=== PATIENT | female | born 1995 | race Caucasian/White ===

== ENCOUNTER → 2018-02-28 16:13 | Outpatient (CLI) | payer MEDICAID, SELFPAY ==
[2018-02-28 19:05] LABS: HIV - WCH Non-Reactive (Nonreactive)
[2018-02-28 19:44] LABS: Probe Check PASS; Sample Adequacy Control PASS; Specimen Processing Control PASS; Trichomonas Vag DNA by PCR Negative (Negative)
[2018-02-28 20:44] LABS: Chlamydia Trachomatis by PCR Negative (Negative); Neisserai gonorrhoeae by PCR Negative (Negative); Probe Check PASS; Sample Adequacy Control PASS; Specimen Processing Control PASS
[2018-03-08 11:03] LABS: HPV APTIMA, High Risk Negative (Negative); HPV Reflexed? NOT INDICATED
== END ==
PROVIDERS: Visit Provider Obstetrics & Gynecology
DX: Z01.419 Encounter for gynecological examination (general) (routine) without abnormal findings (principal); Z11.3 Encounter for screening for infections with a predominantly sexual mode of transmission
CPT/HCPCS: 36415; 86703; 87491; 87591; 87661; 88175; G0145

== ENCOUNTER → 2019-02-28 10:59 | Outpatient (CLI) | payer MEDICAID, SELFPAY ==
[2017-01-21 11:30] VITALS: BMI 27.8
[2019-02-28 15:31] LABS: Chlamydia Trachomatis by PCR Negative (Negative); Neisserai gonorrhoeae by PCR Negative (Negative); Probe Check PASS; Sample Adequacy Control PASS; Specimen Processing Control PASS
[2019-02-28 18:27] LABS: HIV - WCH Non-Reactive (Nonreactive)
[2019-03-01 09:06] LABS: HEPATITIS B SURFACE AG Negative (Negative); Hep C Antibodies <0.1 s/co ratio (0.0-0.9)
[2019-03-03 01:35] LABS: Rapid Plasmin Reagin (RPR) NONREACTIVE (NONREACTIVE)
[2019-03-04 08:50] LABS: HPV HC, High Risk Negative (Negative)
[2019-03-04 08:56] LABS: HPV Reflexed? YES, CHARGE PATIENT
== END ==
PROVIDERS: Visit Provider Obstetrics & Gynecology
DX: Z11.3 Encounter for screening for infections with a predominantly sexual mode of transmission (principal)
CPT/HCPCS: 36415; 86592; 86703; 86803; 87340; 87491; 87591; 87624; 88175; G0145

== ENCOUNTER → 2020-10-18 15:04 | Outpatient (CLI) | payer MEDICAID, SELFPAY ==
[2020-10-18 16:08] LABS: T3 Total - Triiodothyronine 0.79 ng/mL (0.6-1.81)
[2020-10-18 16:18] LABS: Free T3 2.4 pg/mL (2.18-3.98); T4 Free Direct 1.28 ng/dL (0.76-1.46)
[2020-10-21 21:02] LABS: Thyroid Peroxidase AB < 9 IU/mL (0-34)
== END ==
PROVIDERS: Visit Provider Obstetrics & Gynecology
DX: N92.6 Irregular menstruation, unspecified (principal)
CPT/HCPCS: 36415; 84439; 84443; 84480; 84481; 86376

== ENCOUNTER → 2020-11-21 13:59 | Outpatient (CLI) | payer MEDICAID, SELFPAY ==
[2020-11-21 16:32] LABS: Insulin 6.8 mU/L (2.6-37.6); Vitamin D,25 Hydroxy 43.4 ng/mL
[2020-11-21 16:38] LABS: Hemoglobin A1c 5.1 % (3.8-5.6)
[2020-11-21 16:42] LABS: Estradiol 46.5 pg/mL; Follicle Stimulating Hormone 5.7 mIU/mL; Glucose 74 mg/dL (74-106); Luteinizing Hormone 7.9 mIU/mL
[2020-11-23 09:10] LABS: Sex Hormone-binding Globulin 78.1 nmol/L (24.6-122.0)
[2020-11-30 10:47] LABS: 17-Hydroxyprogesterone 67 ng/dL (.)
== END ==
PROVIDERS: Visit Provider Obstetrics & Gynecology
DX: L68.0 Hirsutism (principal); N91.5 Oligomenorrhea, unspecified
CPT/HCPCS: 36415; 82306; 82627; 82670; 82947; 83001; 83002; 83036; 83498; 83525; 84270; 84403; 82626

== ENCOUNTER 2022-02-10 15:23 | Outpatient (CLI) | payer BC, MEDICAID, SELFPAY ==
[2022-02-10 16:05] LABS: Hemoglobin 12.3 g/dL (12.0-15.0); Mean Corp Hgb Conc 33.2 g/dL (32-36); Mean Corpuscular Hgb 31.4 pg (27.0-32.0); Mean Corpuscular Volume 94.4 fL (81-99); Mean Platelet Vol. 11.7 fl (6.2-12.0); Platelet Count 177 K/mm3 (150-450); RBC Distribution Width CV 13.2 % (11.6-14.6); RBC Distribution Width SD 45.8 fl (35.1-43.9); Red Blood Count 3.92 M/mm3 (4.2-5.4); White Blood Count 3.7 K/mm3 (4.4-11.0)
[2022-02-10 16:53] LABS: Estradiol 35.1 pg/mL; Follicle Stimulating Hormone 8.4 mIU/mL; Luteinizing Hormone 10.4 mIU/mL; T4 Free Direct 1.22 ng/dL (0.76-1.46); Thyroid Stim Hormone (TSH) 0.62 uIU/mL (0.358-3.74)
[2022-02-15 16:59] LABS: Testosterone Free 2.4 pg/mL (0.0-4.2)
== END 2022-02-10 23:59 | disposition home or self-care (01) ==
PROVIDERS: Visit Provider Obstetrics & Gynecology
DX: N95.1 Menopausal and female climacteric states (principal)
CPT/HCPCS: 36415; 82670; 83001; 83002; 84402; 84439; 84443; 85027

== ENCOUNTER 2022-11-30 18:41 | Emergency (ER) | payer BC, MEDICAID, SELFPAY ==
[2022-11-30 18:42] VITALS: BP 115/74; PULSE 80; RESP 18; TEMP 36.4; O2SAT 100; BMI 27.3
--- NOTE | 2022-11-30 19:07 | EDS_ITS ---
HPI HPI - URI History of Present Illness Chief Complaint: Cold Sx Informant: patient Onset/Context/Timing Onset: Days Context: Gradual Onset Timing: Continuous Quality: Dull Location: Throat Worsened by: - (Nothing) Relieved by: - (Nothing) Associated Symptoms Associated Symptoms: Positive for Nasal Congestion; Negative for Headache, Sinus Pressure, Myalgias, Nausea or Vomiting Narrative Narrative: Patient present with cough and sore throat that has been getting worse over the past several days. Patient states it is gradually getting worse. Patient states it has been constant. Patient describes her pain as a dull pain. Patient states nothing makes it better nothing makes it worse. Patient admits to some nasal congestion and rhinorrhea. Patient denies any sputum production. Patient admits to some subjective chills but denies any fevers. Patient denies any headaches. ROS [facility] ED Constitutional Constitutional ED: Reports chills and subjective; Denies fever(s) Eyes Eyes: Denies blurry vision or change in vision ENT ENT ED: Reports rhinorrhea and sore throat Cardiovascular Cardiovascular: Denies chest pain or palpitations Respiratory/Chest Respiratory/Chest: Denies cough or dyspnea Gastrointestinal Gastrointestinal: Denies nausea or vomiting Genitourinary Genitourinary ED: Denies dysuria or hematuria Musculoskeletal Musculoskeletal: Denies back pain or neck pain Integumentary Denies abscess or rash Neurologic Neurologic: Denies headache(s) or weakness Allergic/Immunologic Allergic/Immunologic ED: Denies mouth swelling or urticaria [facility] Medical History (Updated 11/30/22 @ 21:[address] Александр Ferrer, DO) Anxiety GERD (gastroesophageal reflux disease) PCOS (polycystic ovarian syndrome) Home Medications Natural Flower Rememdy 1 drp PO DAILY 01/18/17 [History Last Taken Unknown] Red Pepper 4 cap PO BID 01/18/17 [History Last Taken Unknown] ascorbic acid (vitamin C) 1,000 mg tablet (Vitamin C) 2,000 mg PO DAILY 01/18/17 [History Last Taken Unknown] cholecalciferol (vitamin D3) 50 mcg (2,000 unit) capsule (Vitamin D3) 4,000 unit PO DAILY 01/18/17 [History Last Taken Unknown] lactobacillus comb no.10 20 billion cell capsule (Probiotic) 1 ea PO DAILY 01/18/17 [History Last Taken Unknown] multivitamin with folic acid 400 mcg tablet (Thera) 1 tab PO DAILY 01/18/17 [History Last Taken Unknown] multivitamin,min-ferrous fumarate 3.3 mg-folic 25 mcg-herb tablet (Hair, Skin and Nails Advanced) 1 ea PO DAILY 01/18/17 [History Last Taken Unknown] zinc 50 mg tablet 50 mg PO DAILY 01/18/17 [History Last Taken Unknown] Ibuprofen [Motrin] 800 mg PO TID PRN PRN Pain ##30 01/21/17 [Rx Last Taken Unknown] oxycodone 5 mg tablet 5 mg PO Q4H PRN PRN Pain ##20 01/21/17 [Rx Last Taken Unknown] silver sulfadiazine 1 % topical cream 1 applic topical DAILY ##1 01/21/17 [Rx Last Taken Unknown] Allergy/AdvReac Type Severity Reaction Status Date / Time No Known Allergies Allergy Verified 11/30/22 18:44 Surgical History Hx of cervical polypectomy Social History Smoking Status: Unknown if ever smoked EXAM Physical Exam Const Vital Signs: 11/30/22 18:42 11/30/22 19:41 Temperature 97.6 F L Temperature Source Temporal Pulse Rate 80 Respiratory Rate 18 Respiratory Effort Normal Non-Labored Respiratory Pattern Normal Blood Pressure 115/74 Blood Pressure Mean 87 Pulse Ox 100 Oxygen Delivery Method Room Air Positive well nourished and well developed General Appearance ED: well developed and NAD HEENT Reports moist mucous membranes normocephalic and atraumatic Throat: posterior oropharynx abnormal Positive for erythema; Negative for exudates Eyes PERRL and EOMs intact bilaterally Neck supple and no JVD General: lymphadenopathy anterior cervical tender Resp normal respiratory effort and clear to auscultation bilaterally Cardio regular rate, regular rhythm and no murmurs GI normal to inspection, nondistended, normoactive bowel sounds and non-tender Palpation: soft Extremity normal to inspection General Extremety ED: Negative for edema or tenderness General Extremity: Negative for edema Neuro oriented x3, CN's II-XII intact bilaterally and no sensory deficits noted Sensorium / Orientation: alert Motor Exam: strength 5/5 throughout Psych mental status grossly normal Skin no rashes or lesions noted MDM MDM MDM Narrative Medical decision making narrative: Differential diagnosis includes strep pharyngitis, viral pharyngitis, COVID-19, and influenza. Rapid strep will be obtained to assess for streptococcal pharyngitis. COVID-19 rapid antigen will be obtained to assess for COVID-19 infection. Influenza A and influenza B rapid antigens will be obtained to assess for influenza. Lab Data Lab results narrative: COVID-19 rapid antigen was reviewed and was negative. Influenza A and influenza B rapid antigens were reviewed and were negative. Rapid strep was reviewed and was negative. Treatment and Re-Evaluation Narrative: Patient was advised of her findings. Patient was advised that this is a viral upper respiratory infection. I do not feel prescription analgesics are necessary at this time. Patient was instructed to drink plenty of fluids. Patient was instructed to take Tylenol or ibuprofen as needed for any aches or fevers. Patient was instructed to return if worse in any way. Patient understood and was agreeable with the plan. All questions were answered. Discharge Plan Triage Chief Complaint: Cold Sx ED Provider: Александр Ferrer Dx/Rx/DC Orders Clinical Impression: Upper respiratory infection, viral Instructions: ED URI, Viral, No Abx (Adult) Prescriptions: No Action ascorbic acid (vitamin C) [Vitamin C] 1,000 MG tablet 2,000 mg PO DAILY zinc 50 MG tablet 50 mg PO DAILY cholecalciferol (vitamin D3) [Vitamin D3] 2,000 UNIT capsule 4,000 unit PO DAILY multivit [id number] [Hair, Skin and Nails Advanced] 1 EACH tablet 1 ea PO DAILY multivitamin with folic acid [Thera] 1 TABLET tablet 1 tab PO DAILY lactobacillus comb no.10 [Probiotic] 1 EACH capsule 1 ea PO DAILY Natural Flower Rememdy 1 drp PO DAILY Red Pepper 4 cap PO BID silver sulfadiazine 1 APPLIC bottle 1 applic topical DAILY Qty: 1 0RF oxycodone 5 MG tablet 5 mg PO Q4H PRN PRN (Reason: Pain) Qty: 20 0RF Ibuprofen [Motrin] 800 MG tablet 800 mg PO TID PRN PRN (Reason: Pain) Qty: 30 0RF Primary Care Provider: Peg Grover Referrals: [facility] Doctor,Out of [Non-Staff] - 5-7 Days Disposition Disposition: Home, Self Care
== END 2022-11-30 21:40 | disposition home or self-care (01) ==
PROVIDERS: Emergency Provider Emergency Medicine; PCP Nurse Practitioner Family; Visit Provider Emergency Medicine
DX: J06.9 Acute upper respiratory infection, unspecified (principal)
CPT/HCPCS: 87428; 87880; 99282

== ENCOUNTER → 2023-04-26 | Outpatient (CLI) | payer BC, MEDICAID, SELFPAY ==
[2023-04-26 16:14] LABS: Absolute Lymphocyte Count 0.95 X10^3/uL (0.83-4.51); Absolute Neutrophil Count 4.2 X10^3/uL (2.0-7.7); Basophil# 0.04 X10^3/uL; Basophil% 0.7 % (0-1); Eosinophil# 0.05 X10^3/uL; Eosinophils% 0.9 % (0-5); Hematocrit 40.9 % (37-47); Hemoglobin 13.3 g/dL (12.0-15.0); Lymphocyte # 0.95 X10^3/ul (0.83-4.51); Lymphocyte % 16.8 % (19-41); Mean Corp Hgb Conc 32.5 g/dL (32-36); Mean Corpuscular Hgb 31.1 pg (27.0-32.0); Mean Corpuscular Volume 95.6 fL (81-99); Mean Platelet Vol. 11.3 fl (6.2-12.0); Monocyte% 7.1 % (0-10); NRBC Flagged by Analyzer 0 % (0-5); Neutrophil # 4.21 X10^3/uL (2.7-7.7); Neutrophil % 74.1 % (47-70); Platelet Count 197 K/mm3 (150-450); RBC Distribution Width CV 14.5 % (11.6-14.6); RBC Distribution Width SD 49.6 fl (35.1-43.9); Red Blood Count 4.28 M/mm3 (4.2-5.4); White Blood Count 5.7 K/mm3 (4.4-11.0)
[2023-04-26 16:56] LABS: Estradiol 46.1 pg/mL; Follicle Stimulating Hormone 7.6 mIU/mL; Luteinizing Hormone 4.9 mIU/mL; Prolactin 7.3 ng/mL; T4 Free Direct 0.89 ng/dL (0.76-1.46); Thyroid Stim Hormone (TSH) 0.84 uIU/mL (0.358-3.74)
== END | disposition home or self-care (01) ==
LOC: WOBLAB 15:41
PROVIDERS: PCP Nurse Practitioner Family; Visit Provider Nurse Practitioner Women's Health
DX: N93.9 Abnormal uterine and vaginal bleeding, unspecified (principal)
CPT/HCPCS: 36415; 82670; 83001; 83002; 84146; 84439; 84443; 85025